=== PATIENT | male | born 1990 | race African-American/Black ===

== ENCOUNTER 2020-09-24 22:32 | Emergency (ER) | payer MEDICAID ==
[~2020-09-24] VITALS: Ht 185.4 cm; Wt 81.6 kg
[2020-09-24] MEDS ORDERED: AMOX-430 PO (23:29)
[2020-09-24] MEDS ORDERED: NEOM10DR11 OT (23:29)
--- NOTE | 2020-09-24 23:30 | NUR ---
Patient is resting comfortably upright on bed, using cellphone. No acute distress noted.
[2020-09-24 23:38] VITALS: BP 122/72
--- NOTE | 2020-09-24 23:38 | NUR ---
Patient discharged to home in stable condition. Written and verbal after care instructions given. Patient verbalizes understanding of instructions. Stressed follow up or return to ER for worsening s/s. Patient ambulates with steady gait, V/S stable, received paper Rx, and left with all personal belongings.
== END 2020-09-24 23:38 | disposition home or self-care (01) ==
LOC: ER 22:34
DX: H60.91 Unspecified otitis externa, right ear (principal)
CPT/HCPCS: A4663

== ENCOUNTER 2020-11-28 15:08 | Emergency (ER) | payer MEDICAID ==
[~2020-11-28] VITALS: Ht 185.4 cm; Wt 81.6 kg
[~2020-11-28 15:08] MED LIST: AMOX-430 PO; NEOM10DR11 OT
--- NOTE | 2020-11-28 15:28 | NUR ---
at bedside for assessment
[2020-11-28] MEDS ORDERED: ALBUTEROL SULFATE 2.5 MG/3 ML NEBU NEB ONE (15:45)
[2020-11-28] MEDS ORDERED: IV NORMAL SALINE 1000 ML BAG IV ONE (15:45)
[2020-11-28 16:02] LABS: HEMATOCRIT 39.8 % (36.7-47.1); MEAN CORPUSCULAR HEMOGLOBIN 32.7 uug (23.8-33.4); MEAN CORPUSCULAR VOLUME 96.4 fL (73.0-96.2); PLATELET COUNT (AUTO) 301 K/uL (152-348)
[2020-11-28] MEDS ORDERED: ALBUTEROL SULFATE 2.5 MG/3 ML NEBU ONE (16:02)
[2020-11-28 16:07] LABS: CREATININE 1.1 mg/dL (0.6-1.3); POTASSIUM 3.7 mmol/L (3.5-5.1)
[2020-11-28 16:13] LABS: BILIRUBIN,DIRECT 0.2 mg/dL (0.0-0.2); BILIRUBIN,TOTAL 0.6 mg/dL (0.2-1.0); TOTAL PROTEIN, SERUM 7.3 g/dL (6.4-8.2)
--- NOTE | 2020-11-28 16:20 | NUR ---
Patient states he feels better after the breathing treatment
[2020-11-28] MEDS ORDERED: IBUP800T54 PO (16:56)
[2020-11-28] MEDS ORDERED: ALBU8.5H8 INH (16:56)
--- NOTE | 2020-11-28 17:13 | NUR ---
Patient discharged to home in stable condition. No signs of distress noted, patient no longer feels short of breath and states he working on quitting smoking. Written and verbal after care instructions given. Patient verbalizes understanding of instructions. Stressed follow up or return to ER for worsening s/s.
[2020-11-28 17:31] VITALS: BP 145/79
== END 2020-11-28 17:25 | disposition home or self-care (01) ==
LOC: ER 15:11
DX: J20.9 Acute bronchitis, unspecified (principal); Z20.822 Contact with and (suspected) exposure to COVID-19; G89.29 Other chronic pain; M25.511 Pain in right shoulder; I49.8 Other specified cardiac arrhythmias
CPT/HCPCS: 36415; 70030-TC; 71045; 84443; 85025; 93005; A4663; J7030